=== PATIENT | female | born 1955 | race Hispanic/Latino ===

== ENCOUNTER 2020-11-29 07:32 | Inpatient (IN) | payer OTHER ==
[~2020-11-29] VITALS: Ht 157.5 cm; Wt 68.0 kg
[2020-11-29] MEDS ORDERED: DEXAMETHASONE SOD PHOSPHATE 10MG/ML 1ML VIAL ONE (08:17)
[2020-11-29] MEDS ORDERED: CEFTRIAXONE SODIUM 1 GM ONE (08:18)
[2020-11-29] MEDS ORDERED: AZITHROMYCIN 250 MG TABLET PO ONE (08:18)
[2020-11-29 08:52] LABS: BASOPHILS % (AUTO) 0.3 % (0.0-5.0); EOSINOPHILS % (AUTO) 0.5 % (0.0-8.0); LYMPHOCYTES % (AUTO) 16.6 % (21.0-51.0); MEAN CORPUSCULAR HEMOGLOBIN 30.2 pg (27.0-33.0); MEAN CORPUSCULAR HGB CONC 35.8 g/dL (32.0-36.0); MEAN CORPUSCULAR VOLUME 84.6 fL (79-99); MONOCYTES % (AUTO) 24.1 % (3.0-13.0); NEUTROPHILS % (AUTO) 57.1 % (40.0-77.0); PLATELET COUNT (AUTO) 205 K/uL (130-400); RED BLOOD CELL COUNT(AUTO) 4.73 MIL/uL (4.00-5.50); RED CELL DISTRIBUTION WIDTH 11.4 % (11.0-15.5); WHITE BLOOD COUNT (AUTO) 7.7 K/uL (4.8-10.8)
[2020-11-29 08:54] LABS: ABG BASE EXCESS 2.8 mmol/L (-2.0-3.0); ABG HCO3 26.7 mmol/L (21.0-28.0); ABG OXYGEN SATURATION 90.7 % (95.0-99.0); ABG PCO2 39 mmHg (32-45)
[2020-11-29 09:23] LABS: ALBUMIN 2.8 g/dL (3.5-5.0); BILIRUBIN,TOTAL 0.7 mg/dL (0.2-1.0); POTASSIUM 3.6 mmol/L (3.5-5.1); TOTAL PROTEIN, SERUM 7.9 g/dL (6.0-8.3)
[2020-11-29 09:29] LABS: B-TYPE NATRIURETIC PEPTIDE 32 pg/mL (0-100)
[2020-11-29 09:38] LABS: CRP QUANTITATIVE 194.9 mg/L (0.00-9.0)
[2020-11-29 11:14] LABS: APPEARANCE,URINE Clear (CLEAR); BILIRUBIN,URINE Negative (NEGATIVE); COLOR,URINE Yellow (YELLOW); GLUCOSE, URINE (UA) Negative (NEGATIVE); KETONES,URINE Negative (NEGATIVE); LEUKOCYTE ESTERASE ,URINE Trace (NEGATIVE); NITRATE,URINE Negative (NEGATIVE); OCCULT BLOOD,URINE Negative (NEGATIVE); PH,URINE 5.5 (5.0-8.0); PROTEIN,URINE POS 2+ mg/dL (NEGATIVE)
[2020-11-29 11:26] LABS: BACTERIA,URINE Few /HPF (None Seen); RBC,URINE 0-1 /HPF (0-1); WBC,URINE 0-1 /HPF (0-1)
[2020-11-29] MEDS ORDERED: GUAIFENESIN-DM 200/20 MG 10 ML PO PRN (12:00)
[2020-11-29] MEDS: DEXAMETHASONE SOD PHOSPHATE 4 MG/ML 1ML VIAL IVP SCH (12:00)
[2020-11-29] MEDS: ERGOCALCIFEROL (VITAMIN D2) 50,000 UNIT CAPSULE PO SCH (12:00)
[2020-11-29] MEDS: CEFTRIAXONE SODIUM 1 GM IVP SCH (12:00)
[2020-11-29] MEDS ORDERED: DOXYCYCLINE 100MG+NS 250ML 250 ML IV ONE (13:23)
[2020-11-29] MEDS ORDERED: ERGOCALCIFEROL (VITAMIN D2) 50,000 UNIT CAPSULE ONE (13:23)
[2020-11-29] MEDS ORDERED: GUAIFENESIN-CODEINE 5 ML SYRUP ONE ×2 (13:24)
[2020-11-29] MEDS ORDERED: GUAIFENESIN-DM 200/20 MG 10 ML ONE (20:04)
[2020-11-30 04:43] LABS: BASOPHILS % (AUTO) 0.2 % (0.0-5.0); HEMATOCRIT 32.6 % (36-48); LYMPHOCYTES % (AUTO) 17.3 % (21.0-51.0); MEAN CORPUSCULAR HEMOGLOBIN 29.3 pg (27.0-33.0); MEAN CORPUSCULAR VOLUME 83.8 fL (79-99); MONOCYTES % (AUTO) 18.4 % (3.0-13.0); NEUTROPHILS % (AUTO) 61.6 % (40.0-77.0); PLATELET COUNT (AUTO) 200 K/uL (130-400); RED BLOOD CELL COUNT(AUTO) 3.89 MIL/uL (4.00-5.50); RED CELL DISTRIBUTION WIDTH 11.2 % (11.0-15.5)
[2020-11-30 05:05] LABS: ALBUMIN 2.5 g/dL (3.5-5.0); BILIRUBIN,TOTAL 0.5 mg/dL (0.2-1.0); CREATININE 0.8 mg/dL (0.5-1.5); CRP QUANTITATIVE 120.6 mg/L (0.00-9.0); POTASSIUM 3.9 mmol/L (3.5-5.1); TOTAL PROTEIN, SERUM 6.2 g/dL (6.0-8.3)
[2020-11-30] MEDS ORDERED: GUAIFENESIN-DM 200/20 MG 10 ML ONE (06:27)
[2020-11-30] MEDS: ACETYLCYSTEINE 600 MG CAPSULE PO SCH ×2 (09:00→20:04)
[2020-11-30] MEDS: ASCORBIC ACID 500 MG TAB PO SCH (09:00)
[2020-11-30] MEDS: ENOXAPARIN SODIUM 40 MG/0.4 ML SYRINGE SQ SCH (09:00)
[2020-11-30] MEDS: ZINC SULFATE 220 CAPSULE PO SCH (09:00)
[2020-11-30] MEDS ORDERED: ACETYLCYSTEINE 600 MG CAPSULE ONE (09:05)
[2020-11-30] MEDS ORDERED: ERGOCALCIFEROL (VITAMIN D2) 50,000 UNIT CAPSULE ONE (09:05)
[2020-11-30] MEDS ORDERED: ASCORBIC ACID 500 MG TAB ONE (09:05)
[2020-11-30] MEDS ORDERED: DEXAMETHASONE SOD PHOSPHATE 10MG/ML 1ML VIAL ONE (09:05)
[2020-11-30] MEDS ORDERED: ENOXAPARIN SODIUM 40 MG/0.4 ML SYRINGE SQ ONE (09:06)
[2020-11-30] MEDS ORDERED: ZINC SULFATE 220 CAPSULE ONE (09:06)
[2020-11-30] MEDS ORDERED: CEFTRIAXONE SODIUM 1 GM ONE (09:06)
[2020-11-30] MEDS: ERGOCALCIFEROL (VITAMIN D2) 50,000 UNIT CAPSULE PO SCH (11:07)
[2020-11-30] MEDS: DEXAMETHASONE SOD PHOSPHATE 4 MG/ML 1ML VIAL IVP SCH (11:08)
[2020-11-30] MEDS: CEFTRIAXONE SODIUM 1 GM IVP SCH ×3 (11:28→20:04)
[2020-11-30 12:18] VITALS: BP 149/90
[2020-11-30] MEDS: DOXYCYCLINE 100MG+NS 250ML IV SCH ×2 (12:24)
[2020-11-30] MEDS ORDERED: [UNRECOGNIZED DRUG - OTHER] SQ ×2 (13:23)
[2020-11-30] MEDS ORDERED: [UNRECOGNIZED DRUG - OTHER] AS (13:23)
[2020-11-30] MEDS ORDERED: IBUP-14 PO (13:23)
[2020-11-30] MEDS ORDERED: DEXTROSE 50%-WATER 50 ML DISP.SYRIN IV PRN (13:30)
[2020-11-30] MEDS ORDERED: GLUCAGON 1MG KIT 1 MG ML IM PRN (13:30)
[2020-11-30 16:15] VITALS: BP 171/93
[2020-11-30] MEDS: INSULIN HUMULIN R 100 UNIT/ML 3ML SQ SCH ×2 (17:05→20:33)
[2020-11-30] MEDS ORDERED: MECLIZINE HCL 12.5 MG TABLET PO SCH (17:45)
[2020-11-30] MEDS: DOXYCYCLINE 100MG+NS 250ML 250 ML IV SCH (20:31)
[2020-11-30 20:32] VITALS: BP 161/84
[2020-11-30] MEDS ORDERED: DOXYCYCLINE 100MG+NS 250ML IV SCH (21:00)
[2020-11-30] MEDS ORDERED: PHARMACY COMMUNICATION**REMDESIVIR ORDER MISC SCH (21:30)
[2020-11-30 23:51] VITALS: BP 144/68
[2020-12-01 04:01] VITALS: BP 136/82
[2020-12-01] MEDS: INSULIN HUMULIN R 100 UNIT/ML 3ML SQ SCH ×4 (05:59→20:26)
[2020-12-01 06:20] LABS: BASOPHILS % (AUTO) 0.3 % (0.0-5.0); EOSINOPHILS % (AUTO) 0.2 % (0.0-8.0); HEMATOCRIT 35.1 % (36-48); LYMPHOCYTES % (AUTO) 19.7 % (21.0-51.0); MEAN CORPUSCULAR HEMOGLOBIN 29.6 pg (27.0-33.0); MEAN CORPUSCULAR HGB CONC 34.8 g/dL (32.0-36.0); MEAN CORPUSCULAR VOLUME 85.2 fL (79-99); MONOCYTES % (AUTO) 16.9 % (3.0-13.0); NEUTROPHILS % (AUTO) 60.1 % (40.0-77.0); PLATELET COUNT (AUTO) 258 K/uL (130-400); RED BLOOD CELL COUNT(AUTO) 4.12 MIL/uL (4.00-5.50); RED CELL DISTRIBUTION WIDTH 11.3 % (11.0-15.5); WHITE BLOOD COUNT (AUTO) 12.3 K/uL (4.8-10.8)
[2020-12-01 06:45] LABS: ALBUMIN 2.4 g/dL (3.5-5.0); BILIRUBIN,TOTAL 0.5 mg/dL (0.2-1.0); CREATININE 0.8 mg/dL (0.5-1.5); CRP QUANTITATIVE 54.8 mg/L (0.00-9.0); POTASSIUM 3.4 mmol/L (3.5-5.1); TOTAL PROTEIN, SERUM 6.5 g/dL (6.0-8.3)
[2020-12-01 06:48] LABS: HEMOGLOBIN A1C 10.1 % (4.0-6.0)
[2020-12-01] MEDS ORDERED: POTASSIUM CHLORIDE 10% ELIXIR 20 MEQ/15 ML UDCUP PO PRN (07:00)
[2020-12-01] MEDS ORDERED: LIDOCAINE HCL-MPF 1% 2ML VIAL IV PRN (07:00)
[2020-12-01] MEDS ORDERED: POTASSIUM CHLORIDE 20MEQ/100ML 100 ML IV PRN (07:00)
[2020-12-01] MEDS: POTASSIUM CHLORIDE 20 MEQ ERTAB PO PRN ×2 (07:01→08:43)
[2020-12-01 07:52] VITALS: BP 150/79
[2020-12-01] MEDS: DOXYCYCLINE 100MG+NS 250ML 250 ML IV SCH ×2 (08:39→20:26)
[2020-12-01] MEDS: ENOXAPARIN SODIUM 40 MG/0.4 ML SYRINGE SQ SCH (08:39)
[2020-12-01] MEDS: CEFTRIAXONE SODIUM 1 GM IVP SCH ×2 (08:42→20:26)
[2020-12-01] MEDS: DEXAMETHASONE SOD PHOSPHATE 4 MG/ML 1ML VIAL IVP SCH (08:43)
[2020-12-01] MEDS: ZINC SULFATE 220 CAPSULE PO SCH (08:43)
[2020-12-01] MEDS: ACETYLCYSTEINE 600 MG CAPSULE PO SCH ×2 (08:43→20:26)
[2020-12-01] MEDS: ASCORBIC ACID 500 MG TAB PO SCH (08:43)
[2020-12-01] MEDS ORDERED: PHARMACY COMMUNICATION MISC SCH ×2 (08:45→18:15)
[2020-12-01 11:57] VITALS: BP 174/90
[2020-12-01] MEDS: ERGOCALCIFEROL (VITAMIN D2) 50,000 UNIT CAPSULE PO SCH (12:00)
[2020-12-01] MEDS ORDERED: AMLODIPINE BESYLATE 5 MG TAB PO SCH (15:30)
[2020-12-01] MEDS: MECLIZINE HCL 12.5 MG TABLET PO PRN (15:50)
[2020-12-01 16:01] VITALS: BP 161/83
[2020-12-01 20:10] VITALS: BP 138/68
[2020-12-01 23:26] VITALS: BP 139/70
[2020-12-02 04:39] VITALS: BP 140/64
[2020-12-02 05:46] LABS: BASOPHILS % (AUTO) 0.3 % (0.0-5.0); EOSINOPHILS % (AUTO) 0.7 % (0.0-8.0); HEMATOCRIT 34.2 % (36-48); LYMPHOCYTES % (AUTO) 21.6 % (21.0-51.0); MEAN CORPUSCULAR HEMOGLOBIN 29.9 pg (27.0-33.0); MEAN CORPUSCULAR HGB CONC 34.5 g/dL (32.0-36.0); MEAN CORPUSCULAR VOLUME 86.6 fL (79-99); MONOCYTES % (AUTO) 16.3 % (3.0-13.0); NEUTROPHILS % (AUTO) 57.2 % (40.0-77.0); PLATELET COUNT (AUTO) 263 K/uL (130-400); RED BLOOD CELL COUNT(AUTO) 3.95 MIL/uL (4.00-5.50); RED CELL DISTRIBUTION WIDTH 11.2 % (11.0-15.5); WHITE BLOOD COUNT (AUTO) 11.9 K/uL (4.8-10.8)
[2020-12-02] MEDS: INSULIN HUMULIN R 100 UNIT/ML 3ML SQ SCH ×4 (06:03→21:50)
[2020-12-02 06:07] LABS: ALBUMIN 2.4 g/dL (3.5-5.0); BILIRUBIN,TOTAL 0.5 mg/dL (0.2-1.0); CREATININE 0.8 mg/dL (0.5-1.5); CRP QUANTITATIVE 38.1 mg/L (0.00-9.0); POTASSIUM 3.8 mmol/L (3.5-5.1); TOTAL PROTEIN, SERUM 6.4 g/dL (6.0-8.3)
[2020-12-02] MEDS: ACETYLCYSTEINE 600 MG CAPSULE PO SCH ×2 (08:02→20:42)
[2020-12-02] MEDS: ZINC SULFATE 220 CAPSULE PO SCH (08:02)
[2020-12-02] MEDS: DOXYCYCLINE 100MG+NS 250ML 250 ML IV SCH ×2 (08:02→20:41)
[2020-12-02] MEDS: ASCORBIC ACID 500 MG TAB PO SCH (08:02)
[2020-12-02] MEDS: AMLODIPINE BESYLATE 5 MG TAB PO SCH (08:03)
[2020-12-02] MEDS: DEXAMETHASONE SOD PHOSPHATE 4 MG/ML 1ML VIAL IVP SCH (08:03)
[2020-12-02] MEDS: CEFTRIAXONE SODIUM 1 GM IVP SCH ×2 (08:03→20:42)
[2020-12-02] MEDS: MECLIZINE HCL 12.5 MG TABLET PO PRN (08:03)
[2020-12-02] MEDS: ENOXAPARIN SODIUM 40 MG/0.4 ML SYRINGE SQ SCH (08:04)
[2020-12-02 08:31] VITALS: BP 140/73
[2020-12-02] MEDS ORDERED: INSULIN GLARGINE 100 UNITS/ML 10 ML VIAL SQ ONE (09:00)
[2020-12-02] MEDS ORDERED: INSULIN GLARGINE 100 UNITS/ML 10 ML VIAL SQ SCH (09:00)
[2020-12-02] MEDS ORDERED: GADODIAMIDE 10 MMOL/20 ML VIAL IV ONE (10:45)
[2020-12-02 12:17] VITALS: BP 153/80
[2020-12-02] MEDS ORDERED: MECLIZINE HCL 12.5 MG TABLET PO SCH (14:00)
[2020-12-02] MEDS: MECLIZINE HCL 25 MG TABLET PO SCH ×2 (14:57→20:42)
[2020-12-02 17:00] VITALS: BP 143/80
[2020-12-02 20:00] VITALS: BP 127/74
[2020-12-02] MEDS ORDERED: SODIUM CHLORIDE 0.9% 500ML 500 ML IV ONE (20:36)
[2020-12-02 23:54] VITALS: BP 144/76
[2020-12-03 03:51] VITALS: BP 129/66
[2020-12-03 05:26] LABS: BASOPHILS % (AUTO) 0.3 % (0.0-5.0); EOSINOPHILS % (AUTO) 0.5 % (0.0-8.0); HEMATOCRIT 34.5 % (36-48); LYMPHOCYTES % (AUTO) 18.7 % (21.0-51.0); MEAN CORPUSCULAR HEMOGLOBIN 29.7 pg (27.0-33.0); MEAN CORPUSCULAR HGB CONC 35.1 g/dL (32.0-36.0); MEAN CORPUSCULAR VOLUME 84.8 fL (79-99); MONOCYTES % (AUTO) 14.3 % (3.0-13.0); NEUTROPHILS % (AUTO) 62.3 % (40.0-77.0); PLATELET COUNT (AUTO) 275 K/uL (130-400); RED BLOOD CELL COUNT(AUTO) 4.07 MIL/uL (4.00-5.50); RED CELL DISTRIBUTION WIDTH 11.1 % (11.0-15.5); WHITE BLOOD COUNT (AUTO) 11.7 K/uL (4.8-10.8)
[2020-12-03 05:40] LABS: ALBUMIN 2.5 g/dL (3.5-5.0); BILIRUBIN,TOTAL 0.4 mg/dL (0.2-1.0); CREATININE 0.9 mg/dL (0.5-1.5); CRP QUANTITATIVE 32.5 mg/L (0.00-9.0); POTASSIUM 4.2 mmol/L (3.5-5.1)
[2020-12-03] MEDS: INSULIN HUMULIN R 100 UNIT/ML 3ML SQ SCH ×4 (06:16→21:33)
[2020-12-03 08:18] VITALS: BP 142/86
[2020-12-03] MEDS: ACETYLCYSTEINE 600 MG CAPSULE PO SCH ×2 (09:16→20:59)
[2020-12-03] MEDS: DOXYCYCLINE 100MG+NS 250ML 250 ML IV SCH ×2 (09:16→20:59)
[2020-12-03] MEDS: AMLODIPINE BESYLATE 5 MG TAB PO SCH (09:17)
[2020-12-03] MEDS: ZINC SULFATE 220 CAPSULE PO SCH (09:17)
[2020-12-03] MEDS: ASCORBIC ACID 500 MG TAB PO SCH (09:17)
[2020-12-03] MEDS: MECLIZINE HCL 25 MG TABLET PO SCH ×2 (09:17→15:00)
[2020-12-03] MEDS: DEXAMETHASONE SOD PHOSPHATE 4 MG/ML 1ML VIAL IVP SCH (09:18)
[2020-12-03] MEDS: ENOXAPARIN SODIUM 40 MG/0.4 ML SYRINGE SQ SCH (09:20)
[2020-12-03] MEDS: INSULIN GLARGINE 100 UNITS/ML 10 ML VIAL SQ SCH (09:25)
[2020-12-03] MEDS: CIPROFLOXACIN HCL 0.2%/HYDROCORT 1% 10 ML OTIC SUSP OTIC SCH ×3 (11:00→23:00)
[2020-12-03] MEDS: CEFTRIAXONE SODIUM 1 GM IVP SCH ×2 (11:05→20:59)
[2020-12-03] MEDS: ZOSYN 3.375GM+NS 50ML 50 ML IV SCH ×2 (11:11→18:33)
[2020-12-03 11:37] VITALS: BP 161/86
[2020-12-03] MEDS ORDERED: MECLIZINE HCL 12.5 MG TABLET PO PRN (16:00)
[2020-12-03] MEDS ORDERED: MECLIZINE HCL 25 MG TABLET PO PRN (16:00)
[2020-12-03 16:45] VITALS: BP 140/73
[2020-12-03 20:00] VITALS: BP 137/70
[2020-12-04] VITALS (8 sets, daily range): BP systolic 102–157; BP diastolic 58–89
[2020-12-04] MEDS: ZOSYN 3.375GM+NS 50ML 50 ML IV SCH ×3 (04:02→18:46)
[2020-12-04] MEDS: CIPROFLOXACIN HCL 0.2%/HYDROCORT 1% 10 ML OTIC SUSP OTIC SCH ×4 (04:03→23:09)
[2020-12-04] MEDS: INSULIN HUMULIN R 100 UNIT/ML 3ML SQ SCH ×4 (05:53→21:43)
[2020-12-04] MEDS: DOXYCYCLINE 100MG+NS 250ML 250 ML IV SCH ×2 (08:23→21:02)
[2020-12-04] MEDS: ZINC SULFATE 220 CAPSULE PO SCH (08:25)
[2020-12-04] MEDS: ACETYLCYSTEINE 600 MG CAPSULE PO SCH ×2 (08:25→21:01)
[2020-12-04] MEDS: ASCORBIC ACID 500 MG TAB PO SCH (08:25)
[2020-12-04] MEDS: DEXAMETHASONE SOD PHOSPHATE 4 MG/ML 1ML VIAL IVP SCH (08:25)
[2020-12-04] MEDS: ENOXAPARIN SODIUM 40 MG/0.4 ML SYRINGE SQ SCH (08:25)
[2020-12-04] MEDS: CEFTRIAXONE SODIUM 1 GM IVP SCH ×2 (08:26→21:01)
[2020-12-04] MEDS: AMLODIPINE BESYLATE 5 MG TAB PO SCH (08:27)
[2020-12-04] MEDS: INSULIN GLARGINE 100 UNITS/ML 10 ML VIAL SQ SCH (10:39)
[2020-12-04] MEDS ORDERED: REMDESIVIR (EUA) 520 200 MG in SODIUM CHLORIDE 0.9% 250 ML IV ONE (16:00)
[2020-12-04] MEDS ORDERED: COMPOUND IV REFRIGERATED 1 EACH IVSOLN MISC PRN (16:00)
[2020-12-05] MEDS: ZOSYN 3.375GM+NS 50ML 50 ML IV SCH ×3 (03:17→20:57)
[2020-12-05 03:24] VITALS: BP 134/68
[2020-12-05] MEDS: CIPROFLOXACIN HCL 0.2%/HYDROCORT 1% 10 ML OTIC SUSP OTIC SCH ×4 (05:15→23:32)
[2020-12-05] MEDS: INSULIN HUMULIN R 100 UNIT/ML 3ML SQ SCH ×4 (06:00→21:53)
[2020-12-05 06:02] LABS: BASOPHILS % (AUTO) 0.2 % (0.0-5.0); EOSINOPHILS % (AUTO) 0.2 % (0.0-8.0); HEMATOCRIT 33.7 % (36-48); LYMPHOCYTES % (AUTO) 15.6 % (21.0-51.0); MEAN CORPUSCULAR HEMOGLOBIN 29.7 pg (27.0-33.0); MEAN CORPUSCULAR HGB CONC 35.3 g/dL (32.0-36.0); MONOCYTES % (AUTO) 13.8 % (3.0-13.0); NEUTROPHILS % (AUTO) 66.7 % (40.0-77.0); PLATELET COUNT (AUTO) 299 K/uL (130-400); RED BLOOD CELL COUNT(AUTO) 4.01 MIL/uL (4.00-5.50); RED CELL DISTRIBUTION WIDTH 11.3 % (11.0-15.5); WHITE BLOOD COUNT (AUTO) 12.4 K/uL (4.8-10.8)
[2020-12-05] MEDS: REMDESIVIR LABS MISC SCH (06:07)
[2020-12-05 06:18] LABS: ALBUMIN 2.5 g/dL (3.5-5.0); BILIRUBIN,TOTAL 0.3 mg/dL (0.2-1.0); POTASSIUM 3.7 mmol/L (3.5-5.1); TOTAL PROTEIN, SERUM 6.3 g/dL (6.0-8.3)
[2020-12-05 08:07] VITALS: BP 161/82
[2020-12-05] MEDS: ENOXAPARIN SODIUM 40 MG/0.4 ML SYRINGE SQ SCH (08:44)
[2020-12-05] MEDS: DEXAMETHASONE SOD PHOSPHATE 4 MG/ML 1ML VIAL IVP SCH (08:46)
[2020-12-05] MEDS: DOXYCYCLINE 100MG+NS 250ML 250 ML IV SCH (08:46)
[2020-12-05] MEDS: ACETYLCYSTEINE 600 MG CAPSULE PO SCH (08:47)
[2020-12-05] MEDS: ASCORBIC ACID 500 MG TAB PO SCH (08:47)
[2020-12-05] MEDS: CEFTRIAXONE SODIUM 1 GM IVP SCH (08:47)
[2020-12-05] MEDS: AMLODIPINE BESYLATE 5 MG TAB PO SCH (08:47)
[2020-12-05] MEDS: ZINC SULFATE 220 CAPSULE PO SCH (08:48)
[2020-12-05] MEDS: INSULIN GLARGINE 100 UNITS/ML 10 ML VIAL SQ SCH (09:20)
[2020-12-05 12:02] VITALS: BP 124/71
[2020-12-05 16:37] VITALS: BP 126/70
[2020-12-05] MEDS: REMDESIVIR (EUA) 520 100 MG in SODIUM CHLORIDE 0.9% 250 ML IV SCH (18:08)
[2020-12-05 20:00] VITALS: BP 134/73
[2020-12-06] VITALS: BP 129/79
[2020-12-06] MEDS: ZOSYN 3.375GM+NS 50ML 50 ML IV SCH (03:35)
[2020-12-06 04:00] VITALS: BP 130/72
[2020-12-06] MEDS: CIPROFLOXACIN HCL 0.2%/HYDROCORT 1% 10 ML OTIC SUSP OTIC SCH ×3 (05:23→16:25)
[2020-12-06 05:24] LABS: BASOPHILS % (AUTO) 0.2 % (0.0-5.0); EOSINOPHILS % (AUTO) 0.2 % (0.0-8.0); MEAN CORPUSCULAR HEMOGLOBIN 29.7 pg (27.0-33.0); MEAN CORPUSCULAR HGB CONC 35.3 g/dL (32.0-36.0); MEAN CORPUSCULAR VOLUME 84.3 fL (79-99); MONOCYTES % (AUTO) 12.5 % (3.0-13.0); NEUTROPHILS % (AUTO) 70.4 % (40.0-77.0); PLATELET COUNT (AUTO) 320 K/uL (130-400); RED BLOOD CELL COUNT(AUTO) 4.27 MIL/uL (4.00-5.50); RED CELL DISTRIBUTION WIDTH 11.5 % (11.0-15.5); WHITE BLOOD COUNT (AUTO) 12.6 K/uL (4.8-10.8)
[2020-12-06 05:39] LABS: BILIRUBIN,TOTAL 0.4 mg/dL (0.2-1.0); CREATININE 0.9 mg/dL (0.5-1.5); POTASSIUM 3.9 mmol/L (3.5-5.1); TOTAL PROTEIN, SERUM 6.5 g/dL (6.0-8.3)
[2020-12-06] MEDS: REMDESIVIR LABS MISC SCH (06:00)
[2020-12-06] MEDS: INSULIN HUMULIN R 100 UNIT/ML 3ML SQ SCH ×3 (06:11→16:25)
[2020-12-06] MEDS: AMLODIPINE BESYLATE 5 MG TAB PO SCH (08:04)
[2020-12-06] MEDS: ENOXAPARIN SODIUM 40 MG/0.4 ML SYRINGE SQ SCH (08:04)
[2020-12-06] MEDS: ASCORBIC ACID 500 MG TAB PO SCH (08:04)
[2020-12-06] MEDS: DEXAMETHASONE SOD PHOSPHATE 4 MG/ML 1ML VIAL IVP SCH (08:04)
[2020-12-06] MEDS: ZINC SULFATE 220 CAPSULE PO SCH (08:05)
[2020-12-06] MEDS: INSULIN GLARGINE 100 UNITS/ML 10 ML VIAL SQ SCH (08:06)
[2020-12-06 08:10] VITALS: BP 146/83
[2020-12-06 11:42] VITALS: BP 133/72
[2020-12-06] MEDS ORDERED: AEC81 PO (13:56)
[2020-12-06] MEDS ORDERED: LEVO500T89 PO (13:56)
[2020-12-06] MEDS ORDERED: PANT40TA55 PO (13:56)
[2020-12-06] MEDS ORDERED: DEXA6TAB7 PO (13:56)
[2020-12-06] MEDS: REMDESIVIR (EUA) 520 100 MG in SODIUM CHLORIDE 0.9% 250 ML IV SCH (15:48)
[2020-12-06 16:16] VITALS: BP 145/81
== END 2020-12-06 18:12 | disposition home or self-care (01) | DRG 177 ==
LOC: EDH 07:32 → OBSVTOIN 07:33 → EDHIP 07:33 → 2DH 11-30 12:08
PROVIDERS: ADMIT Family Medicine; ATTEND Family Medicine
PROC: XW13325 Transfusion of Convalescent Plasma (Nonautologous) into Peripheral Vein, Percutaneous Approach, New Technology Group 5 (ICD-10-PCS; 2020-11-29)
PROC: XW033E5 Introduction of Remdesivir Anti-infective into Peripheral Vein, Percutaneous Approach, New Technology Group 5 (ICD-10-PCS; principal; 2020-12-06)
DX: U07.1 COVID-19 (principal); J96.01 Acute respiratory failure with hypoxia; J12.81 Pneumonia due to SARS-associated coronavirus; D68.59 Other primary thrombophilia; I10 Essential (primary) hypertension; Z90.710 Acquired absence of both cervix and uterus; E11.65 Type 2 diabetes mellitus with hyperglycemia; H66.91 Otitis media, unspecified, right ear; H70.91 Unspecified mastoiditis, right ear; J01.90 Acute sinusitis, unspecified; T38.0X5A Adverse effect of glucocorticoids and synthetic analogues, initial encounter; R53.81 Other malaise; Y92.89 Other specified places as the place of occurrence of the external cause; E66.9 Obesity, unspecified; Z68.27 Body mass index [BMI] 27.0-27.9, adult
CPT/HCPCS: 36415; 36600; 70553; 71045; 80053; 81001; 82248; 82728; 82803; 82948; 83036; 83605; 83615; 83880; 84145; 84484; 85025; 85378; 86140; 86850; 86900; 86901; 86927; 87040; 87426; 93005; 94760; 97039; A9579; G0378; J0696; J1100; J1650; J1815; J2543; J3490; J7040; J7050; U0003